=== PATIENT | female | born 1995 | race Caucasian/White ===

== ENCOUNTER 2018-08-02 11:35 | Inpatient (IN) | payer OTHER, MEDICAID ==
[2018-08-02] VITALS (39 sets, daily range): BP systolic 99–142; BP diastolic 55–91; PULSE 71–137; TEMP 97.3–98.2
[~2018-08-02] VITALS: Ht 154.9 cm; Wt 83.2 kg
[~2018-08-02 11:35] MED LIST: LEVAQUIN 5500 MG/TA1 PO; SEASONIQUE1 TAB PO
[2018-08-02] MEDS ORDERED: CONCEPT DHA1 CAP PO (11:51)
[2018-08-02 12:53] LABS: BASO % 0.2 % (0.0-2.0); EOS # 0.1 (0.0-0.7); EOS % 1.2 % (0-4.0); GRAN # 4.7 (1.4-6.5); GRAN % 56.7 % (42.2-75.2); HEMOGLOBIN 11.8 g/dl (12.5-16.0); LYMPH % 35.8 % (20.0-51.0); MEAN CELL VOLUME 89 fl (80.0-100.0); MEAN CORPUSCULAR HEMOGLOBIN 32 pg (27.0-31.0); MEAN CORPUSCULAR HGB CONC 36 g/dl (33.0-37.0); MEAN PLATELET VOLUME 10.5 fl (7.4-10.4); MONO # 0.5 (0.1-0.6); MONO % 5.7 % (1.7-9.3); PLATELET COUNT 231 K/mm3 (130-400); RED BLOOD COUNT 3.72 M/mm3 (4.10-5.30); REDCELL DISTRIBUTION WIDTH-CV 12.6 % (11.5-14.5)
[2018-08-02] MEDS ORDERED: PERCOCET 325 MG1 TA2 PO (21:46)
[2018-08-02] MEDS ORDERED: MOTRIN 800800 MG/TAB PO (21:46)
[2018-08-03] VITALS: BP 118/75; PULSE 117; TEMP 99.1
[2018-08-03 04:30] VITALS: BP 109/72; PULSE 98; TEMP 99.3
[2018-08-03 07:30] VITALS: BP 116/91; PULSE 100; TEMP 98.8
[2018-08-03 12:21] VITALS: BP 114/67; PULSE 92; TEMP 98.3
[2018-08-03 16:45] VITALS: BP 121/76; PULSE 92; TEMP 98.3
[2018-08-03 20:30] VITALS: BP 120/74; PULSE 97; TEMP 98.3
[2018-08-04 08:55] VITALS: BP 115/69; PULSE 100; TEMP 98.3
== END 2018-08-04 12:00 | disposition home or self-care (01) | DRG 775 ==
LOC: LDRO 11:35 → LDR 11:40 → LDRO 12:50 → OB 12:52 → LDR 12:52 → OB 08-03
PROVIDERS: Obstetrics & Gynecology
PROC: 10E0XZZ Delivery of Products of Conception, External Approach (ICD-10-PCS; principal; 2018-08-02)
PROC: 0HQ9XZZ Repair Perineum Skin, External Approach (ICD-10-PCS; 2018-08-02)
PROC: 0UQMXZZ Repair Vulva, External Approach (ICD-10-PCS; 2018-08-02)
DX: O70.0 First degree perineal laceration during delivery (principal); Z3A.39 39 weeks gestation of pregnancy; Z37.0 Single live birth; O62.2 Other uterine inertia; K21.9 Gastro-esophageal reflux disease without esophagitis
CPT/HCPCS: J2210; J2590; J7120